=== PATIENT | female | born 1955 | race Caucasian/White ===

== ENCOUNTER 2021-02-26 07:23 | Emergency (ER) | payer OTHER ==
[2021-02-26 07:39] VITALS: BMI 28.5
[2021-02-26 11:02] LABS: BASO % 1.1 % (0-2.0); EOS % 5.2 % (0-4.5); HEMATOCRIT 34.5 % (32.4-45.2); HEMOGLOBIN 11.8 GM/dL (10.7-15.3); LYMPH % 27.9 % (8-40); MCH 32.6 pg (25.7-33.7); MCHC 34.2 g/dl (32.0-36.0); MEAN CELL VOLUME 95.3 fl (80-96); MEAN PLT VOLUME 9.4 fl (7.5-11.1); MONO % 6.3 % (3.8-10.2); NEUT % 59.5 % (42.8-82.8); PLATELET COUNT 178 10^3/uL (134-434); RBC 3.62 M/mm3 (3.60-5.2); RDW 12.5 % (11.6-15.6); WHITE BLOOD COUNT 4.5 K/mm3 (4.0-10.0)
[2021-02-26 11:26] LABS: CHLORIDE 108 mmol/L (98-107); SODIUM 144 mmol/L (136-145)
[2021-02-26 11:28] LABS: CALCIUM 8.4 mg/dL (8.5-10.1)
[2021-02-26 11:29] LABS: ALBUMIN 3.4 g/dl (3.4-5.0); ANION GAP 6 MMOL/L (8-16); BLOOD UREA NITROGEN 18.1 mg/dL (7-18); CO2 29 mmol/L (21-32); GLUCOSE,RANDOM 81 mg/dL (74-106)
[2021-02-26 11:32] LABS: CREATININE 0.7 mg/dL (0.55-1.3); SGOT/AST 19 U/L (15-37); SGPT/ALT 20 U/L (13-61)
[2021-02-26 11:33] LABS: BILIRUBIN,TOTAL 0.4 mg/dL (0.2-1); TOT PROT 6.5 g/dl (6.4-8.2)
[2021-02-26 11:35] LABS: ALK PHOS 70 U/L (45-117)
[2021-02-26] MEDS ORDERED: HALOPERIDOL LACTATE 5 MG/ML IM ONE (11:51)
[2021-02-26] MEDS ORDERED: HALOPERIDOL LACTATE 5 MG/ML ONE (12:12)
[2021-02-26] MEDS ORDERED: LORazepam 2 MG/ML SDV VIAL IVPUSH ONE (12:30)
[2021-02-26] MEDS ORDERED: LORazepam 2 MG/ML SDV VIAL ONE (12:37)
[2021-02-27 12:06] VITALS: BP 102/55; PULSE 72; TEMP 98.1
== END 2021-02-27 12:06 ==
LOC: JER 07:23
PROC: 3E023GC Introduction of Other Therapeutic Substance into Muscle, Percutaneous Approach (ICD-10-PCS; principal; 2021-02-26)
PROC: 3E033NZ Introduction of Analgesics, Hypnotics, Sedatives into Peripheral Vein, Percutaneous Approach (ICD-10-PCS; 2021-02-26)
DX: M25.512 Pain in left shoulder (principal); M25.552 Pain in left hip; W19.XXXA Unspecified fall, initial encounter
CPT/HCPCS: 36415; 70450-TC; 71045-TC-FY; 72125-TC; 73523-TC-FY; 80053; 82550; 84484; 85025; 93005; 93010; 99285-25; C9803; U0003; U0005

== ENCOUNTER 2021-04-05 17:24 | Inpatient (IN) | payer OTHER ==
[2021-04-05 17:44] VITALS: BMI 28.0
[2021-04-05 19:47] LABS: BASO % 1.7 % (0-2.0); HEMOGLOBIN 11.8 GM/dL (10.7-15.3); LYMPH % 39.8 % (8-40); MCH 31.8 pg (25.7-33.7); MCHC 33.8 g/dl (32.0-36.0); MEAN CELL VOLUME 94.2 fl (80-96); MEAN PLT VOLUME 9.6 fl (7.5-11.1); NEUT % 44.5 % (42.8-82.8); PLATELET COUNT 158 10^3/uL (134-434); RBC 3.71 M/mm3 (3.60-5.2)
[2021-04-05 20:06] LABS: CALCIUM 8.7 mg/dL (8.5-10.1)
[2021-04-05 20:07] LABS: ALBUMIN 3.7 g/dl (3.4-5.0); BLOOD UREA NITROGEN 19.2 mg/dL (7-18)
[2021-04-05 20:10] LABS: CREATININE 0.7 mg/dL (0.55-1.3)
[2021-04-05 20:12] LABS: BILIRUBIN,TOTAL 0.4 mg/dL (0.2-1); TOT PROT 6.5 g/dl (6.4-8.2)
[2021-04-05 21:47] LABS: EPI CELLS 6 /uL (0-25.1); HYALINE CASTS 0 /uL (0-3.1); PH,URINE 5.5 (5.0-8.0); URINE APPEARANCE Error; URINE BACTERIA 12 /uL (0-1359); URINE BILIRUBIN NEGATIVE (NEGATIVE); URINE COLOR YELLOW; URINE GLUCOSE (UA) NEGATIVE (NEGATIVE); URINE KETONE TRACE (NEGATIVE); URINE LEUK ESTERASE NEGATIVE (NEGATIVE); URINE NITRITE NEGATIVE (NEGATIVE); URINE PROTEIN NEGATIVE (NEGATIVE); URINE RBC 17 /uL (0-23.9); URINE UROBILINOGEN 0.2 mg/dL (0.2-1.0); URINE WBC 3 /uL (0-25.8)
[2021-04-06] MEDS ORDERED: ALBUTEROL SO4 2.5/IPRATROPIUM 0.5 INH SOL 3 ML VIAL.NEB. NEB PRN (05:04)
[2021-04-06] MEDS: LEVOTHYROXINE NA 125 MCG TABLET (FP) PO SCH (05:59)
[2021-04-06] MEDS: QUEtiapine FUMARATE 50 MG TABLET PO SCH ×2 (10:28→21:04)
[2021-04-06 12:41] LABS: BASO % 0.9 % (0-2.0); EOS % 5.7 % (0-4.5); HEMATOCRIT 37.3 % (32.4-45.2); HEMOGLOBIN 12.3 GM/dL (10.7-15.3); MCH 31.2 pg (25.7-33.7); MEAN CELL VOLUME 94.6 fl (80-96); MEAN PLT VOLUME 9.7 fl (7.5-11.1); MONO % 5.9 % (3.8-10.2); NEUT % 63.5 % (42.8-82.8); PLATELET COUNT 173 10^3/uL (134-434); RBC 3.94 M/mm3 (3.60-5.2); RDW 12.6 % (11.6-15.6); WHITE BLOOD COUNT 4.4 K/mm3 (4.0-10.0)
[2021-04-06 12:59] LABS: ALBUMIN 3.6 g/dl (3.4-5.0); BLOOD UREA NITROGEN 15.7 mg/dL (7-18); CALCIUM 9.1 mg/dL (8.5-10.1)
[2021-04-06 13:02] LABS: CREATININE 0.7 mg/dL (0.55-1.3)
[2021-04-06 13:04] LABS: BILIRUBIN,TOTAL 0.5 mg/dL (0.2-1); TOT PROT 6.4 g/dl (6.4-8.2)
[2021-04-06] MEDS: DONEPEZIL HCL 10 MG TABLET (FP) PO SCH (21:04)
[2021-04-06] MEDS ORDERED: DONEPEZIL HCL 10 MG TABLET (FP) PO SCH (22:00)
[2021-04-07] MEDS: LEVOTHYROXINE NA 125 MCG TABLET (FP) PO SCH (06:10)
[2021-04-07] MEDS: CHOLECALCIFEROL (VIT D3) 1,000 UNIT (25 MCG) TABLET PO SCH (11:09)
[2021-04-07] MEDS: POLYETHYLENE GLYCOL (HEALTHYLAX) 3350 17 GM PACKET PO SCH (11:09)
[2021-04-07] MEDS: SENNOSIDES 8.6MG TABLET (FP) PO SCH (11:09)
[2021-04-07] MEDS: QUEtiapine FUMARATE 50 MG TABLET PO SCH ×2 (11:09→21:20)
[2021-04-07] MEDS: DONEPEZIL HCL 10 MG TABLET (FP) PO SCH ×2 (11:09→21:20)
[2021-04-08] MEDS: LEVOTHYROXINE NA 125 MCG TABLET (FP) PO SCH (06:00)
[2021-04-08] MEDS ORDERED: LORazepam 2 MG/ML SDV VIAL IM ONE (07:11)
[2021-04-08] MEDS: QUEtiapine FUMARATE 50 MG TABLET PO SCH ×2 (11:05→23:10)
[2021-04-08] MEDS: SENNOSIDES 8.6MG TABLET (FP) PO SCH (11:05)
[2021-04-08] MEDS: DONEPEZIL HCL 10 MG TABLET (FP) PO SCH ×2 (11:05→23:10)
[2021-04-08] MEDS: CHOLECALCIFEROL (VIT D3) 1,000 UNIT (25 MCG) TABLET PO SCH (11:06)
[2021-04-08] MEDS: POLYETHYLENE GLYCOL (HEALTHYLAX) 3350 17 GM PACKET PO SCH (11:06)
[2021-04-08] MEDS ORDERED: HALOPERIDOL LACTATE 5 MG/ML IM PRN (13:20)
[2021-04-09 03:56] VITALS: TEMP 98.3
[2021-04-09] MEDS: LEVOTHYROXINE NA 125 MCG TABLET (FP) PO SCH (06:29)
[2021-04-09] MEDS: DONEPEZIL HCL 10 MG TABLET (FP) PO SCH (10:17)
[2021-04-09] MEDS: QUEtiapine FUMARATE 50 MG TABLET PO SCH (10:17)
[2021-04-09] MEDS: CHOLECALCIFEROL (VIT D3) 1,000 UNIT (25 MCG) TABLET PO SCH (10:17)
[2021-04-09] MEDS: SENNOSIDES 8.6MG TABLET (FP) PO SCH (10:21)
[2021-04-09] MEDS: POLYETHYLENE GLYCOL (HEALTHYLAX) 3350 17 GM PACKET PO SCH (10:25)
[2021-04-09 15:52] VITALS: BP 113/47; PULSE 61
== END 2021-04-09 16:51 | DRG 57 ==
LOC: JER 17:24 → JERBED 21:32 → J6S 04-06 01:57
PROVIDERS: ADMIT Hospitalist; ATTEND Internal Medicine
DX: G30.9 Alzheimer's disease, unspecified (principal); F02.81 Dementia in other diseases classified elsewhere, unspecified severity, with behavioral disturbance; E03.9 Hypothyroidism, unspecified; R45.1 Restlessness and agitation; I10 Essential (primary) hypertension; J45.909 Unspecified asthma, uncomplicated; F22 Delusional disorders; Z20.822 Contact with and (suspected) exposure to COVID-19
CPT/HCPCS: 36415; 70450-TC; 71045-TC-FY; 80053; 81003; 82550; 84439; 84443; 84484; 85025; 87086; 93005; 93010; 99285-25; C9803; U0003; U0005

== ENCOUNTER 2021-06-18 11:37 | Emergency (ER) | payer OTHER, BC ==
[2021-06-18 12:42] VITALS: BMI 25.6
[2021-06-18] MEDS ORDERED: HALOPERIDOL LACTATE 5 MG/ML IM ONE (14:21)
[2021-06-18] MEDS ORDERED: HALOPERIDOL LACTATE 5 MG/ML ONE (14:26)
[2021-06-18] MEDS ORDERED: MIDAZOLAM HCL 2 MG/2 ML SINGLE DOSE VIAL IVPUSH ONE (16:30)
[2021-06-18] MEDS ORDERED: MIDAZOLAM HCL 2 MG/2 ML SINGLE DOSE VIAL ONE (16:32)
[2021-06-18 18:04] LABS: BASO % 0.6 % (0-2.0); EOS % 1.8 % (0-4.5); HEMATOCRIT 36.2 % (32.4-45.2); HEMOGLOBIN 12.3 GM/dL (10.7-15.3); LYMPH % 12.1 % (8-40); MCH 31.7 pg (25.7-33.7); MCHC 34.1 g/dl (32.0-36.0); MEAN CELL VOLUME 92.8 fl (80-96); MEAN PLT VOLUME 9.8 fl (7.5-11.1); MONO % 5.8 % (3.8-10.2); NEUT % 79.7 % (42.8-82.8); PLATELET COUNT 169 10^3/uL (134-434); RDW 13.5 % (11.6-15.6); WHITE BLOOD COUNT 5.3 K/mm3 (4.0-10.0)
[2021-06-18 18:38] LABS: ALBUMIN 3.5 g/dl (3.4-5.0); CALCIUM 8.5 mg/dL (8.5-10.1)
[2021-06-18 18:39] LABS: BLOOD UREA NITROGEN 10.3 mg/dL (7-18)
[2021-06-18 18:41] LABS: CREATININE 0.7 mg/dL (0.55-1.3)
[2021-06-18 18:43] LABS: BILIRUBIN,TOTAL 0.3 mg/dL (0.2-1); TOT PROT 6.4 g/dl (6.4-8.2)
[2021-06-18 21:08] LABS: PH,URINE 6.5 (5.0-8.0); URINE APPEARANCE CLEAR; URINE BILIRUBIN NEGATIVE (NEGATIVE); URINE COLOR YELLOW; URINE GLUCOSE (UA) NEGATIVE (NEGATIVE); URINE KETONE NEGATIVE (NEGATIVE); URINE LEUK ESTERASE NEGATIVE (NEGATIVE); URINE NITRITE NEGATIVE (NEGATIVE); URINE PROTEIN NEGATIVE (NEGATIVE); URINE UROBILINOGEN 0.2 mg/dL (0.2-1.0)
[2021-06-19 02:36] VITALS: PULSE 58; TEMP 98
[2021-06-19 04:32] VITALS: BP 151/68
== END 2021-06-19 04:31 ==
LOC: JER 11:37
PROC: 3E033GC Introduction of Other Therapeutic Substance into Peripheral Vein, Percutaneous Approach (ICD-10-PCS; principal; 2021-06-18)
PROC: 3E023GC Introduction of Other Therapeutic Substance into Muscle, Percutaneous Approach (ICD-10-PCS; principal; 2021-06-18)
DX: R68.89 Other general symptoms and signs (principal); W19.XXXA Unspecified fall, initial encounter
CPT/HCPCS: 36415; 70450-TC; 71045-TC-FY; 72125-TC; 72170-TC-FY; 80053; 81003; 82550; 82553; 84484; 85025; 93005; 93010; 99285-25